=== PATIENT | male | born 1945 | race Caucasian/White ===

== ENCOUNTER 2018-06-21 08:07 | Inpatient (IN) | payer MEDICARE, OTHER | END 2018-06-23 11:15 | disposition home or self-care (01) | LOC: ER 08:07 → ED HOLD 09:56 → SUR 3N 13:29 | DX: K56.609 Unspecified intestinal obstruction, unspecified as to partial versus complete obstruction (principal); E78.5 Hyperlipidemia, unspecified; R51 Headache; K44.9 Diaphragmatic hernia without obstruction or gangrene ==